=== PATIENT | female | born 1990 | race Caucasian/White ===

== ENCOUNTER 2020-02-19 17:54 | Emergency (ER) | payer OTHER, BC ==
[~2020-02-19] VITALS: Ht 154.9 cm; Wt 52.6 kg
--- NOTE | 2020-02-19 18:29 | NUR ---
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 VLADIMIR
--- NOTE | 2020-02-19 18:41 | NUR ---
first contact with pt. pt c/o right sided flank and abod pain. denies n/v/d. pt's aox4. resps even and unlabored. bp/spo2 monitors in place. call light within reach. edmd at bedside evaluating at this time.
[2020-02-19] MEDS ORDERED: ONDANSETRON 2MG/ML, 2ML IVPush ONE (19:00)
[2020-02-19] MEDS ORDERED: SODIUM CHLORIDE FLUSH 10ML SYR IVF ONE (19:00)
--- NOTE | 2020-02-19 19:03 | NUR ---
report of pt from jerardo toribio and assuming care of pt at this time.
--- NOTE | 2020-02-19 19:09 | NUR ---
report given to betty kurtz.
[2020-02-19] MEDS ORDERED: HYDROmorphone 1 MG/ML, 1ML INJ ONE (19:16)
[2020-02-19] MEDS ORDERED: ONDANSETRON 2MG/ML, 2ML ONE (19:16)
[2020-02-19 19:19] LABS: BASOPHILS # (AUTO) 0.02 x10^3/uL (0-0.1); BASOPHILS % (AUTO) 0 % (0-1); EOSINOPHILS # (AUTO) 0.02 x10^3/uL (0-0.4); EOSINOPHILS % (AUTO) 0 % (1-7); LYMPHOCYTES # (AUTO) 2.93 x10^3/uL (1-3.4); LYMPHOCYTES % (AUTO) 31 % (22-44); MD NO; MEAN CORPUSCULAR HEMOGLOBIN 34.5 pg (27.0-34.8); MEAN CORPUSCULAR HGB CONC 34.2 g/dL (32.4-35.8); MEAN CORPUSCULAR VOLUME 100.7 fL (80-100); MEAN PLATELET VOLUME 7.1 fL (7.4-10.4); MONOCYTES # (AUTO) 0.85 x10^3/uL (0.2-0.8); MONOCYTES % (AUTO) 9 % (2-9); NEUTROPHILS # (AUTO) 5.53 x10^3/uL (1.8-6.8); NEUTROPHILS % (AUTO) 59 % (42-75); PLATELET COUNT 270 x10^3/uL (130-400); RED BLOOD COUNT 4.46 x10^6/uL (3.82-5.3); RED CELL DISTRIBUTION WIDTH 11.9 % (9.6-15.2)
[2020-02-19 19:25] LABS: MICROSCOPIC AUTO
[2020-02-19] MEDS: HYDROmorphone 2 MG/ML, 1ML IVPush PRN ×2 (19:26→20:30)
--- NOTE | 2020-02-19 19:29 | NUR ---
pt medicated per mar for pain and nausea at this time. pt resting in [place] [place].
--- NOTE | 2020-02-19 19:30 | NUR ---
pt attached to vs monitors. vss at this time.
[2020-02-19 19:35] LABS: ALANINE AMINOTRANSFERASE 25 U/L (12-78); ANION GAP 7 mmol/L (5-15); CHLORIDE 106 mmol/L (98-107); CREATININE 0.81 mg/dL (0.55-1.02)
[2020-02-19 19:39] LABS: ALKALINE PHOSPHATASE 43 U/L (45-117); BILIRUBIN,TOTAL 0.5 mg/dL (0.2-1.0); TOTAL PROTEIN 7.2 g/dL (6.4-8.2)
--- NOTE | 2020-02-19 20:31 | NUR ---
PT MEDICATED PER MAR FOR PAIN AT THIS TIME. PT BACK FROM CT VIA GURMICHAEL. VSS AND UPDATED IN EMR.
[2020-02-19] MEDS ORDERED: CEFTRIAXONE PMX 1GM/50ML 50 ML IVPB ONE (21:00)
[2020-02-19] MEDS ORDERED: CEFTRIAXONE PMX 1GM/50ML 50 ML ONE (21:12)
--- NOTE | 2020-02-19 22:15 | NUR ---
PT D/C WITH D/C SUMMARY AND SCRIPTS. ALL QUESTIONS ANSWERED. PT VSS UPON PT D/C AND PT D/C WITH FRIEND FOR TRANSPORTATION OF PT HOME AT THIS TIME. PT DENIES ANY OTHER NEEDS PERTAINING TO THIS VISIT AND AMBULATES TO REGISTRATION DESK WITH STEADY GAIT.
[2020-02-19 22:16] VITALS: BP 121/82
== END 2020-02-19 22:21 | disposition home or self-care (01) ==
LOC: ED 18:57
DX: N30.01 Acute cystitis with hematuria (principal)
CPT/HCPCS: 36415; 74176; 80053; 81001; 83690; 84703; 85025; 87077; 87086; 87186; 96365; 96375; 96376; 99284; J0696; J1170; J2405

== ENCOUNTER 2020-10-14 10:04 | Emergency (ER) | payer BC, OTHER ==
[~2020-10-14] VITALS: Ht 154.9 cm; Wt 55.6 kg
--- NOTE | 2020-10-14 10:26 | NUR ---
PT BIB SELF VIA POV. PER PT RIGHT SIDE CP AFTER LIFITING HEAVY BOX ON 10/13, PAIN CONTINUES TODAY AND RADIATES INTO ARM PIT. PAIN INCREASES WITH INSPIRATION 10/14. PT STATES SHE HAD A BREAST AUGMENTATION 3 YEARS AGO. PT STATES BREAST LOOK UNEVEN. PT RESTING IN [facility] AT THIS TIME, TM.
[2020-10-14] MEDS ORDERED: KETOROLAC 60 MG/2 ML ONE (10:58)
[2020-10-14] MEDS ORDERED: KETOROLAC 30 MG/1 ML IM ONE (11:00)
[2020-10-14 12:08] VITALS: BP 135/74
== END 2020-10-14 12:41 | disposition home or self-care (01) ==
LOC: ED 12:20
DX: R07.89 Other chest pain (principal); Z98.82 Breast implant status; R94.31 Abnormal electrocardiogram [ECG] [EKG]
CPT/HCPCS: 71046; 93005; 96372; 99283; J1885